=== PATIENT | male | born 1960 | race Caucasian/White ===

== ENCOUNTER → 2016-10-04 | Outpatient (CLI) | payer BC ==
[~2016-10-04] VITALS: Ht 182.9 cm; Wt 101.8 kg
[~2016-10-04] MED LIST: ALLEGRA ALLERG180 MG PO; ANDROGEL1.62% TP; ASMANEX220 MCG IH; BREATHE RIGHT1 EACH TP; CO Q-10200 MG PO; CUTIVATE30 GM TP; EPIPEN 2-PAK1 MG/ML; FISH OIL1 IU; FLUTICASONE PRO; GLUCOSAMINE; IBU800 M1 PO; PROVENTIL0.09 MG/A1; SILDENAFIL CITR20 MG PO; SUNMARK MAGNES250 MG PO; VITAMIN D32000 UNI1 PO; [UNRECOGNIZED DRUG - OTHER] PO
[2016-10-04 14:38] VITALS: BP 134/80
== END ==
LOC: AMSURD 14:27
DX: Z00.00 Encounter for general adult medical examination without abnormal findings (principal)